=== PATIENT | male | born 1940 | race Two or more races ===

== ENCOUNTER 2018-04-17 08:19 | Emergency (ER) | payer MEDICARE, OTHER, MEDICAID ==
[~2018-04-17] VITALS: Ht 157.5 cm; Wt 90.7 kg
--- NOTE | 2018-04-17 08:22 | NUR ---
BIBRA 89 W C/O L ARM PAIN AND NUMBNESS AT L HAND, S/P NEVRO STIMULATOR BATTERY REPOSITIONING AT 0615, NITRO PATCH GIVEN EN ROUTE, DENIES CHEST PAIN, TO ER BED 9, MEDICAL PRACTICE ADMINISTRATOR AT BEDSIDE, HOOKED TO ACCOUNT SOLUTIONS ANALYST, AT BEDSIDE
[2018-04-17] MEDS ORDERED: HYDROCODONE/APAP 5/325MG 1 EACH TABLET PO ONE (08:30)
[2018-04-17] MEDS ORDERED: HYDROCODONE/APAP 5/325MG 1 EACH TABLET ONE (08:38)
[2018-04-17 08:45] LABS: BASOPHILS % (AUTO) 0.6 % (0.0-2.0); EOSINOPHILS % (AUTO) 0.9 % (0.0-6.0); HEMATOCRIT 43 % (39-51); LYMPHOCYTES % (AUTO) 14.2 % (20.0-44.0); MEAN CORPUSCULAR HGB CONC 33 g/dl (31.0-36.0); MEAN CORPUSCULAR VOLUME 92 fL (80-96); MONOCYTES # (AUTO) 0.2 /CMM (0.1-1.30); MONOCYTES % (AUTO) 2.7 % (2.0-12.0); NEUTROPHILS # (AUTO) 5.8 /CMM (1.8-8.9); NEUTROPHILS % (AUTO) 81.6 % (43.0-81.0); PLATELET COUNT (AUTO) 156 /CMM (150-450); RED BLOOD CELL COUNT(AUTO) 4.63 MIL/uL (4.5-6.0); WHITE BLOOD COUNT (AUTO) 7.1 K/uL (4.3-11.0)
--- NOTE | 2018-04-17 08:56 | NUR ---
TINWARE LITHOGRAPH PRESS OPERATOR AT BEDSIDE
[2018-04-17 09:00] LABS: CALCIUM, SERUM 8.5 mg/dL (8.5-10.1); CARBON DIOXIDE 24 mmol/L (21-32); CHLORIDE 109 mmol/L (98-107); CREATININE 1.4 mg/dL (0.6-1.3); GLUCOSE 98 mg/dL (74-106); POTASSIUM 4.5 mmol/L (3.5-5.1); SODIUM SERUM 141 mmol/L (136-145); UREA NITROGEN, BLOOD 22 mg/dL (7-18)
[2018-04-17 09:02] VITALS: BP 108/63
[2018-04-17 09:13] LABS: B-TYPE NATRIURETIC PEPTIDE 82 PG/ML (0-125)
--- NOTE | 2018-04-17 09:32 | NUR ---
IV removed. Catheter intact and site benign. Pressure and 4x4 applied to site. No bleeding noted.Patient discharged to home in stable condition. Written and verbal after care instructions given. Patient verbalizes understanding of instruction.
== END 2018-04-17 09:50 | disposition home or self-care (01) ==
LOC: ER 08:20
DX: M79.602 Pain in left arm (principal); M54.9 Dorsalgia, unspecified; E11.9 Type 2 diabetes mellitus without complications; Z88.1 Allergy status to other antibiotic agents; Z60.2 Problems related to living alone
CPT/HCPCS: 36415; 71045-TC; 80048-TC; 83880; 84484-TC; 85025-TC; 85730-TC